=== PATIENT | female | born 1980 | race Hispanic/Latino ===

== ENCOUNTER 2017-10-07 16:33 | Emergency (ER) | payer MEDICAID, OTHER ==
[2017-10-07 16:33] VITALS: BMI 23.1
[2017-10-07 16:40] VITALS: BP 136/67; PULSE 92; RESP 18; TEMP 97.9; O2SAT 99
--- NOTE | 2017-10-07 16:54 | ED PDOC ---
HPI: Psych/Substance Abuse Time Seen by Provider: 10/07/17 16:35 Chief Complaint (Nursing): Alcohol Ingestion Chief Complaint (Provider): Alcohol Intoxication History Per: Patient, EMS History/Exam Limitations: no limitations Onset/Duration Of Symptoms: Hrs Additional Complaint(s): Patient is a 37 y/o female known to be a drug abuser, who was brought to the ED by EMS after being found sleeping in patient transportation driver seat of her car. As per patient, she does admit to taking 3 shots of alcohol today and states that she felt too impaired to continue driving so she pulled over to sleep. She adds that she turned off her car and was waiting to sober up to be able to drive again. Patient denies any chest pain., shortness of breath, headache, or injury. PCP: NO FAMILY PROVIDER Past Medical History Reviewed: Historical Data, Nursing Documentation, Vital Signs Vital Signs: Last Vital Signs Temp 97.9 F 10/07/17 16:37 Pulse 92 H 10/07/17 16:37 Resp 18 10/07/17 16:37 BP 136/67 10/07/17 16:37 Pulse Ox 99 10/07/17 16:37 - Medical History PMH: Anxiety, Asthma, COPD, Depression, Hepatitis, Post Traumatic Stress Disorder, Seizures (Due to alcohol withdrawal), Sexually Transmitted Disease ( Herpes) Denies: Diabetes, HIV, HTN - Surgical History Surgical History: No Surg Hx - Family History Family History: States: No Known Family Hx - Social History Current smoker - smoking cessation education provided: Yes (heavy smoker > 10 cigarettes daily) Alcohol: Occasional (Vodka, beer) Drugs: Other (Positive for substance abuse) - Immunization History Hx Tetanus Toxoid Vaccination: No Hx Influenza Vaccination: No Hx Pneumococcal Vaccination: No - Home Medications Home Medications: Ambulatory Orders Medication Instructions Recorded Albuterol HFA [Ventolin HFA 90 1 puff INH Q6 PRN 03/14/16 mcg/actuation (8 g)] Budesonide/Formoterol Fumarate 1 aer IH DAILY 03/14/16 [Symbicort 80-4.5 Mcg Inhaler] Sertraline [Zoloft] 50 mg PO DAILY 03/14/16 valACYclovir [Valtrex] 500 mg PO DAILY 06/13/16 QUEtiapine [SEROquel] 50 mg PO HS #30 tab 06/17/16 Sertraline [Zoloft] 100 mg PO DAILY #30 tab 06/17/16 traZODone [Desyrel] 100 mg PO HS PRN #30 tab 06/17/16 Azithromycin [Zithromax] 1 tab PO DAILY 07/14/16 Gabapentin [Neurontin] 1 tab PO DAILY 07/14/16 Albuterol HFA [Ventolin HFA 90 1 puff INH RQ6 PRN #1 inhaler 01/06/17 mcg/actuation (8 g)] Gabapentin [Neurontin] 300 mg PO BID #60 cap 01/06/17 QUEtiapine [SEROquel] 50 mg PO HS #30 tab 01/06/17 Sertraline [Zoloft] 100 mg PO DAILY #30 tab 01/06/17 traZODone [Desyrel] 100 mg PO HS PRN #30 tab 01/06/17 valACYclovir [Valtrex] 500 mg PO DAILY #30 tab 01/06/17 - Allergies Allergies/Adverse Reactions: Allergies Allergy/AdvReac Type Severity Reaction Status Date / Time Penicillins Allergy unknown Verified 01/04/17 16:52 seafood Allergy ANAPHYLAXIS Uncoded 10/07/17 16:35 Review of Systems ROS Statement: Except As Marked, All Systems Reviewed And Found Negative Cardiovascular: Negative for: Chest Pain Respiratory: Negative for: Shortness of Breath Neurological: Negative for: Headache Physical Exam - Reviewed Nursing Documentation Reviewed: Yes Vital Signs Reviewed: Yes - Physical Exam Appears: Positive for: No Acute Distress Head Exam: Positive for: ATRAUMATIC, NORMOCEPHALIC Skin: Positive for: Normal Color, Warm, Dry Eye Exam: Positive for: Normal appearance, EOMI, PERRL Neck: Positive for: Normal, Painless ROM, Supple Cardiovascular/Chest: Positive for: Regular Rate, Rhythm. Negative for: Murmur Respiratory: Positive for: Normal Breath Sounds. Negative for: Respiratory Distress Gastrointestinal/Abdominal: Positive for: Normal Exam, Soft. Negative for: Tenderness Back: Positive for: Normal Inspection. Negative for: L CVA Tenderness, R CVA Tenderness, Vertebral Tenderness Extremity: Positive for: Normal ROM. Negative for: Pedal Edema, Deformity Neurologic/Psych: Positive for: Alert, Oriented (x3), Gait (Steady and unassisted). Negative for: Motor/Sensory Deficits - ECG O2 Sat by Pulse Oximetry: 99 (RA) Pulse Ox Interpretation: Normal Medical Decision Making Medical Decision Makin:05 -Patient reports no complaints at this time and does not want to be evaluated at the ED -Patient states she will not be driving home Scribe Attestation: Documented by Evie Grubbs, acting as a scribe for Jorge Carrera PA-C Provider Scribe Attestation: All medical record entries made by the Scribe were at my direction and personally dictated by me. I have reviewed the chart and agree that the record accurately reflects my personal performance of the history, physical exam, medical decision making, and the department course for this patient. I have also personally directed, reviewed, and agree with the discharge instructions and disposition. Disposition - Clinical Impression Clinical Impression: Alcohol intoxication - Patient ED Disposition Is Patient to be Admitted: No - Disposition Disposition Time: 16:53 Condition: STABLE Instructions: Alcohol Intoxication (ED) Forms: [employer] (Wallisian)
== END 2017-10-07 17:07 | disposition home or self-care (01) ==
LOC: H.ER 16:33
DX: F10.129 Alcohol abuse with intoxication, unspecified (principal); F32.9 Major depressive disorder, single episode, unspecified; F43.10 Post-traumatic stress disorder, unspecified; J44.9 Chronic obstructive pulmonary disease, unspecified; Z88.0 Allergy status to penicillin; F17.210 Nicotine dependence, cigarettes, uncomplicated

== ENCOUNTER 2018-11-02 15:51 | Inpatient (IN) | payer MEDICAID, OTHER ==
[2018-11-02 15:51] VITALS: BMI 26.4
--- NOTE | 2018-11-02 16:28 | ED PDOC ---
HPI: Psych/Substance Abuse Time Seen by Provider: 11/02/18 16:07 Chief Complaint (Nursing): Psychiatric Evaluation Chief Complaint (Provider): Overdose History Per: Patient History/Exam Limitations: no limitations Onset/Duration Of Symptoms: Days (yesterday) Additional Complaint(s): Pt. states she took 15 trazodone tablets of 100mg each and alcohol last night. She took it to try to sleep. Denies suicidal or homicidal ideation. She called [facility] to get help and they called back, but she missed the call. Police was called by them to check on her and brought her to the ER. Pt. denies any nausea, vomit, weakness, dizziness, sleepiness, chest pain, palpitations, or any symptoms currently. Past Medical History Reviewed: Nursing Documentation, Vital Signs Vital Signs: Last Vital Signs Temp 98.0 F 11/02/18 15:59 Pulse 128 H 11/02/18 15:59 Resp 20 11/02/18 15:59 BP 94/35 L 11/02/18 15:59 Pulse Ox 98 11/02/18 15:59 - Medical History PMH: Anxiety, Asthma, COPD, Depression, Hepatitis, Pancreatitis, Post Traumatic Stress Disorder, Seizures (Due to alcohol withdrawal), Sexually Transmitted Disease (Herpes) Denies: Diabetes, HTN, Chronic Kidney Disease Comment Only: HIV (SEE NOTE) - Family History Family History: States: Unknown Family Hx - Immunization History Hx Tetanus Toxoid Vaccination: No Hx Influenza Vaccination: No Hx Pneumococcal Vaccination: No - Home Medications Home Medications: Ambulatory Orders Medication Instructions Recorded Alendronate Sodium [Binosto] 70 mg PO QWK 03/20/18 Gabapentin [Neurontin] 300 mg PO BID 03/20/18 Omeprazole 40 mg PO DAILY 03/20/18 SUMAtriptan succinate [Imitrex Tab] 100 mg PO DAILY PRN 03/20/18 Budesonide/Formoterol Fumarate 1 aer IH BID PRN 04/01/18 [Symbicort] Sertraline [Zoloft] 50 mg PO DAILY 06/11/18 Albuterol HFA [Ventolin HFA 90 2 puff IH [id number] PRN #1 inhaler 06/14/18 mcg/actuation (8 g)] Budesonide [Pulmicort Respules] 0.25 mg INH RQ12 #1 nebu 06/14/18 Mirtazapine [Remeron] 30 mg PO HS #30 tab 06/14/18 QUEtiapine [Seroquel] 100 mg PO HS #30 tab 06/14/18 - Allergies Allergies/Adverse Reactions: Allergies Allergy/AdvReac Type Severity Reaction Status Date / Time Penicillins Allergy ANAPHYLAXIS Verified 11/02/18 15:59 seafood Allergy ANAPHYLAXIS Uncoded 11/02/18 15:59 Review of Systems ROS Statement: Except As Marked, All Systems Reviewed And Found Negative Physical Exam - Reviewed Nursing Documentation Reviewed: Yes Vital Signs Reviewed: Yes - Physical Exam Appears: Positive for: Non-toxic, No Acute Distress Head Exam: Positive for: ATRAUMATIC, NORMAL INSPECTION, NORMOCEPHALIC Skin: Positive for: Normal Color, Warm, DRY Eye Exam: Positive for: EOMI, Normal appearance, PERRL ENT: Positive for: Normal ENT Inspection Neck: Positive for: Normal, Painless ROM Cardiovascular/Chest: Positive for: Regular Rate, Rhythm Respiratory: Positive for: CNT, Normal Breath Sounds Gastrointestinal/Abdominal: Positive for: Normal Exam, Soft. Negative for: Tenderness Back: Positive for: Normal Inspection. Negative for: L CVA Tenderness, R CVA Tenderness Extremity: Positive for: Normal ROM. Negative for: Tenderness, Pedal Edema Neurologic/Psych: Positive for: Alert, pyrometer mechanic II-XII, Oriented. Negative for: Motor/Sensory Deficits, Aphasia, Facial Droop - Laboratory Results Result Diagrams: 11/02/18 16:30 11/02/18 16:30 Interpretation Of Abn Labs: opiates, coccaine, alcohol pos - ECG ECG: Positive for: Interpreted By Me, Viewed By Me ECG Rhythm: Positive for: Normal QRS, Sinus Rhythm Interpretation Of Abn EKG: qtc 482 Interpretation Of ECG: qtc 452 on repeat ekg. O2 Sat by Pulse Oximetry: 98 Pulse Ox Interpretation: Normal - Progress ED Course And Treament: 1640: Spoke with poison control. Made aware of presentation. Want EKG, labs, and monitor. No acute tx at this time. 1851: Stable. Vitals improved. Crisis saw pt. Will sign in for admit. Medically stable for admit. Coccaine in system likely cause of elevated hr. - Core Measure Core Measure Indicators: Code Heart Disposition - Clinical Impression Clinical Impression: PTSD (post-traumatic stress disorder), Cocaine abuse, Alcohol intoxication - Patient ED Disposition Is Patient to be Admitted: Yes Counseled Patient/Family Regarding: Studies Performed, Diagnosis - Disposition Disposition Time: 19:25 Condition: STABLE - Pt Status Changed To: Hospital Disposition Of: Inpatient - Admit Certification Admit to Inpatient:: After my assessment, the patient will require hospitalization for at least two midnights. This is because of the severity of symptoms shown, intensity of services needed, and/or the medical risk in this patient being treated as an outpatient. - POA Present On Arrival: None
[2018-11-02 16:43] LABS: BASO # 0.1 K/uL (0.0-0.2); BASO % 1.4 % (0.0-2.0); EOS # 0.2 K/uL (0.0-0.7); EOS % 3.3 % (0.0-4.0); HEMOGLOBIN 14.5 g/dL (12.0-16.0); LYMPH # 2.5 K/uL (1.0-4.3); LYMPH % 46.4 % (20.0-40.0); MEAN CELL VOLUME 95.5 fl (81.0-99.0); MEAN CORPUSCULAR HEMOGLOBIN 33.1 pg (27.0-31.0); MEAN CORPUSCULAR HGB CONC 34.6 g/dL (33.0-37.0); MONO # 0.3 K/uL (0.0-0.8); MONO % 5.7 % (0.0-10.0); NEUT # 2.3 K/uL (1.8-7.0); NEUT % 43.2 % (50.0-75.0); NRBC % 0.1 % (0.0-0.0); RBC 4.37 Mil/uL (3.80-5.20); RED CELL DISTRIBUTION WIDTH 11.9 % (11.5-14.5); WHITE BLOOD COUNT 5.3 K/uL (4.8-10.8)
[2018-11-02] MEDS: Sodium Chloride 0.9% 1,000 ML IV STA ×2 (16:45→23:03)
[2018-11-02 16:56] LABS: ACETAMINOPHEN < 10.0 ug/ml (10.0-30.0); ALB/GLOB RATIO 1.2 (1.0-2.1); ALBUMIN 4.6 g/dL (3.5-5.0); ALT/SGPT 42 U/L (9-52); AST/SGOT 50 U/L (14-36); BLOOD UREA NITROGEN 8 mg/dl (7-17); CALCIUM 9.4 mg/dL (8.4-10.2); GFR NON-AFRICAN AMERICAN > 60; SALICYLATE < 1.0 mg/dl
[2018-11-02 17:07] LABS: BARBITURATES, UR NEGATIVE (NEGATIVE); BENZODIAZEPINES, UR NEGATIVE (NEGATIVE); OPIATES, UR POSITIVE (NEGATIVE); PHENCYCLIDINE, UR NEGATIVE (NEGATIVE)
[2018-11-02] MEDS ORDERED: Magnesium Hydroxide Susp 30 ml UD PO PRN (22:27)
[2018-11-02] MEDS ORDERED: Alum-Mag Hydrox-Simethicone Susp (30 mL) PO PRN (22:27)
[2018-11-02] MEDS ORDERED: DiphenhydrAMINE 50 mg/ml Inj IM PRN (22:27)
[2018-11-02 23:31] VITALS: O2SAT 97
--- NOTE | 2018-11-03 00:01 | PCM.BM ---
<Nayely Stephens - Last Filed: 11/03/18 00:03> Treatment Plan Problems - Problems identified on initial assessmt Medication nonadherence Date Initiated: 11/03/18 Time Initiated: 00:00 Assessment reference: NA Status: Active Ineffective Family Coping Date Initiated: 11/03/18 Time Initiated: 00:01 Assessment reference: NA Status: Active Altered sleep patterns Date Initiated: 11/03/18 Time Initiated: 00:01 Date resolved: 11/03/18 Assessment reference: NA Status: Active Treatment assets and liabiliti Patient Assests: adapts well, cooperative, insightful, resourceful, self- reliant, ADL independent, good support system, negotiates basic needs, cognitively intact, good interpersonal skills Patient Liabilities: poor support system, substance abuse, medical problems - Milieu Protocol Maintain good personal hygiene: every shift Encourage regular showers, every shift Remind patient to perform daily oral care, every shift Assist patient to perform ADL's Conduct patient checks and document Observation sheet: Q15 minutes, 1:1 Maintain personal safety: every shift Educate patient to report safety concerns to staff, every shift Monitor environment for contraband/sharps Medication safety: Monitor for expected outcome, potential side effects: every shift, Assess barriers to learning: every shift, Assess readiness for medication education: every shift <Magda Contreras - Last Filed: 11/05/18 16:24> Treatment assets and liabiliti Patient Assests: adapts well, cooperative, educated (Pt. reports partial college education with [employer]. Pt. reports intentions to return to school and become a medical office representative. ), resourceful, self-reliant, ADL independent, good support system (Pt. reports having a loving relationship with son. Pt. reports circumstantially supportive relationship with mother and sister who reside in [facility]. ), good past tx response (longest period of sobriety: 3 years with help of [facility] and NA) Patient Liabilities: financial problems, substance abuse (Pt. reports extensive hx of polysubstance abuse with several periods of sobriety. (ETOH/marijuana: since age 12, heroin: since age 20, longest period of sobriety: 3 years with help of [facility] and NA). Pt. reports relapsing 5 days ago (heroin /ETOH). Pt. positive for opiates, cocaine, ETOH upon admission. ) Family Contact Family involvement: Family/SO is involved Family contact: Family has been contacted by patient, Patient declines to allow family contact at present - Goals for Treatment Patient goals for treatment: Patient to continue stabilization on 3NP through medication management and group/supportive therapy to address sxs of depression, eliminate SI, and safely detox. Patient to be encouraged to attend groups regularly to promote self-awareness, sobriety, and improve insight, compliance, coping skills and self-esteem. Patient to be provided with referral for appropriate level of aftercare to reduce risk of future hospitalizations and ensure safety in the community. Pt. identified wanting to work on her recovery to maintain sobriety and prioritize outpatient mental health services to be able to return to work and be there for her son. Discharge/Continuing Care - Education Needs Education Needs: Patient Medication, Patient Diagnosis/Disease Process, Patient Coping Skills, Patient Community resources, Patient Aftercare Safety Plan - Discharge Discharge Criteria: Tolerates medication w/o severe side effects, Free of Suicidal thoughts, Free of agitation, Normal sleep pattern, Ability to care for self, No longer exhibiting s/s of withdrawal Discharge to:: Home, With Family - Treatment Team Participation Patient/Family/SO Statement: 11/05/18 16:28 Pt. attended tx team this morning to discuss progress on 3NP and tx goals. Pt. reported significant improvement in sxs of depression and anxiety since admissio n as exhibited by improved sleep, better mood, increased energy/motivation. Pt. denied SI/HI and was able to contract for [employer]. Pt. expressed gratitude regarding benefits of being on 3NP with peers who share similar narratives, dx, vices. Affect is brighter than at time of admission. Insight improved as exhibited by pt being more easily engaged in discussion regarding benefits of sobriety and risks of continued to substance abuse/non-adherence. Pt. receptive to feedback and expressed motivation for tx. Pt. requesting referral to [facility]. Intake appointment has been made by this news writer. Pt. anticipated for discharge on 11/06/18. [facility] scheduled for 11am-2pm. Discussed with Family/SO: No Was Patient/Family/SO present at Treatment Team Meeting: Yes <Lenny Flaherty - Last Filed: 11/06/18 09:04> - Diagnosis (1) Cocaine abuse Status: Acute Interventions: motivational therapy 11/06/18 09:04
[2018-11-03 09:00] LABS: T4 6.91 ug/dl (5.5-11.0)
--- NOTE | 2018-11-03 12:02 | PCM.PSYCH ---
Initial Psychiatric Evaluation - Initial Psychiatric Evaluation History of Present Illness and Precipitating Events: pt is 38 ys old female with previous diagnosis of polysubstance dependence and depression , recently discharged from [facility] rehab, patient was feeling increasingly depressed due to the anniversary of the of her , relapsed on alcohol, cocaine and opiates , pt started having suicidal ideation, overdosed on trazodone and alcohol and called [facility] , police was called and patient was brought to ER pt on evaluation presenting with depressed mood and affect, reported early insomnia, low energy and anhedonia, denied active thoughts of self harm on the unit denied perceptual disturbances Current Medications: Active Medications Generic Name Dose Route Start Last Admin Trade Name Freq PRN Reason Stop Dose Admin Acetaminophen 650 mg 11/02/18 22:27 Tylenol 325mg Tab PO Q4 PRN Pain, moderate (4-7) Al Hydrox/Mg Hydrox/Simethicone 30 ml 11/02/18 22:27 Maalox Plus 30 Ml PO Q4 PRN Dyspepsia Chlordiazepoxide 25 mg 11/03/18 17:00 Librium PO Q8 JOCELIN Clonidine HCl 0.1 mg 11/03/18 09:00 11/03/18 09:10 Catapres PO 0.1 mg Q12 JOCELIN Administration Diphenhydramine HCl 50 mg 11/02/18 22:27 Benadryl IM Q6 PRN Extrapyramidal S/S Unable PO Diphenhydramine HCl 50 mg 11/02/18 22:27 Benadryl PO Q6 PRN Extrapyramidal Symptoms Gabapentin 300 mg 11/03/18 09:00 11/03/18 09:10 Neurontin PO 300 mg TID JOCELIN Administration Haloperidol 5 mg 11/02/18 22:27 Haldol PO Q4 PRN Agitation Haloperidol Lactate 5 mg 11/02/18 22:27 Haldol IM Q4 PRN Agitation, Unable to Take PO Ibuprofen 800 mg 11/02/18 22:39 Motrin Tab PO 11/05/18 22:39 Q6 PRN Pain, Mild (1-3) Loperamide HCl 2 mg 11/02/18 22:39 Imodium PO Q4 PRN After Loose Bowel Movement Lorazepam 1 mg 11/02/18 22:27 Ativan PO Q6 PRN Anxiety/Agitation Lorazepam 2 mg 11/03/18 00:27 Ativan IM Q8 PRN Agitation Magnesium Hydroxide 30 ml 11/02/18 22:27 Milk Of Magnesia PO HS PRN Constipation Mirtazapine 7.5 mg 11/03/18 22:00 Remeron PO HS JOCELIN Nicotine 1 patch 11/03/18 11:20 Nicoderm Cq TD 11/03/18 11:21 STAT STA Nicotine 1 patch 11/04/18 09:00 Nicoderm Cq TD DAILY JOCELIN Trazodone HCl 50 mg 11/02/18 22:35 Desyrel PO HS PRN Insomnia Past Psychiatric History - Past Psychiatric History Explanation of prior treatment: multiple hospitalizations with partial compliance History of ETOH/Drug Use: alcohol , opiates and cannabis Pertinent Medical Hx (Current Medical&Sleep Prob, Allergies): Allergies Allergy/AdvReac Type Severity Reaction Status Date / Time Penicillins Allergy ANAPHYLAXIS Verified 11/02/18 15:59 seafood Allergy ANAPHYLAXIS Uncoded 11/02/18 15:59 Alendronate Sodium [Binosto] 70 mg PO QWK 03/20/18 Gabapentin [Neurontin] 300 mg PO BID 03/20/18 Omeprazole 40 mg PO DAILY 03/20/18 SUMAtriptan succinate [Imitrex Tab] 100 mg PO DAILY PRN 03/20/18 Budesonide/Formoterol Fumarate [Symbicort] 1 aer IH BID PRN 04/01/18 Sertraline [Zoloft] 50 mg PO DAILY 06/11/18 Albuterol HFA [Ventolin HFA 90 mcg/actuation (8 g)] 2 puff IH [id number] PRN #1 inhaler 06/14/18 Budesonide [Pulmicort Respules] 0.25 mg INH RQ12 #1 nebu 06/14/18 Mirtazapine [Remeron] 30 mg PO HS #30 tab 06/14/18 QUEtiapine [Seroquel] 100 mg PO HS #30 tab 06/14/18 Mental Status Examination - Personal Presentation Personal Presentation: Looks stated age - Affect Affect: Constricted, Depressed - Motor Activity Motor Activity: Psychomotor Retardation - Reliability in Providing Information Reliability in Providing Information: Fair - Speech Speech: Relevant - Mood Mood: Depressed, Anxious - Formal Thought Process Formal Thought Process: Circumstantial - Obsessions/Compulsions Obsessions: No Compulsions: No - Cognitive Functions Orientation: Person, Place, Situation Sensorium: Alert Judgement: Imparied, as evidence by: Poor judgement, Imparied, as evidence by: Mariaa dask of insight into illness - Risk Risk: Suicidal, Withdrawal, Diminished functioning - Strength & Assets Inventory Strength & Assets Inventory: Life experience - Limitations Additional comments: poor compliance DSM 5 DX - DSM 5 DSM 5 Diagnosis: alcohol induced mood disorder with depressive features alcohol abuse opiate abuse cocaine abuse depression - Recommended/Plan of Treatment Treatment Recommendations and Plan of Treatment: start librium protocol/ monitor patient for symptoms and signs of alcohol withdrawal start clonidine protocol/ monitor for symptoms and signs of opiate withdrawal neurontin 300mg tid for anxiety and seizures trazodone 50mg qhs start remeron 7.5mg qhs for depression and insomnia motivational group and supportive therapy
--- NOTE | 2018-11-03 23:13 | CARD ---
APPROVED REPORT Date of service: 11/02/2018 EKG Measurement Heart [id number] <Conclusion> Normal sinus rhythm Nonspecific ST abnormality Abnormal ECG
--- NOTE | 2018-11-03 23:15 | CARD ---
APPROVED REPORT Date of service: 11/02/2018 EKG Measurement Heart [id number] <Conclusion> Normal sinus rhythm Prolonged QT Abnormal ECG
--- NOTE | 2018-11-04 10:14 | CP.PCM.CON ---
History of Present Illness - History of Present Illness History of Present Illness: 38 yo female with history of polysubstance abuse admitted to psyche unit because of worsening depression. Review of Systems - Review of Systems All systems: reviewed and no additional remarkable complaints except (aside from those mentioned above, 12 point system review were negative by me) Past Patient History - Infectious Disease Hx of Infectious Diseases: None - Tetanus Immunizations Tetanus Immunization: Unknown - Past Medical History & Family History Past Medical History?: Yes - Past Social History Smoking Status: Heavy Smoker > 10 Cigarettes Daily Chewing Tobacco Use: No Cigar Use: No Alcohol: > 2 Drinks/Day Drugs: Opiates - CARDIAC Hx Cardiac Disorders: No Hx Hypertension: No - PULMONARY Hx Chronic Obstructive Pulmonary Disease (COPD): Yes Hx Tuberculosis: No - NEUROLOGICAL Hx Seizures: Yes (Due to alcohol withdrawal) - HEENT Hx HEENT Problems: No - RENAL Hx Chronic Kidney Disease: No - ENDOCRINE/METABOLIC Hx Endocrine Disorders: No - HEMATOLOGICAL/ONCOLOGICAL Hx Cancer: No Hx Hepatitis C: Yes Hx Human Immunodeficiency Virus (HIV): (SEE NOTE) - INTEGUMENTARY Hx Dermatological Problems: No - MUSCULOSKELETAL/RHEUMATOLOGICAL Hx Falls: Yes - GASTROINTESTINAL Hx Gastrointestinal Disorders: Yes Hx Pancreatitis: Yes Other/Comment: pancreatitis - GENITOURINARY/GYNECOLOGICAL Hx Sexually Transmitted Disorders: Yes (Herpes) - PSYCHIATRIC Hx Substance Use: Yes (cocaine, heroin) - SURGICAL HISTORY Hx Surgeries: Yes Hx Herniorrhaphy: Yes Hx Tubal Ligation: Yes (2 years ago) - ANESTHESIA Hx Anesthesia: Yes Hx Anesthesia Reactions: No Hx Malignant Hyperthermia: No Meds Allergies/Adverse Reactions: Allergies Allergy/AdvReac Type Severity Reaction Status Date / Time Penicillins Allergy ANAPHYLAXIS Verified 11/02/18 15:59 seafood Allergy ANAPHYLAXIS Uncoded 11/02/18 15:59 - Medications Medications: Current Medications Acetaminophen (Tylenol 325mg Tab) 650 mg PO Q4 PRN PRN Reason: Pain, moderate (4-7) Al Hydrox/Mg Hydrox/Simethicone (Maalox Plus 30 Ml) 30 ml PO Q4 PRN PRN Reason: Dyspepsia Chlordiazepoxide (Librium) 25 mg PO Q8 JOCELIN Last Admin: 11/04/18 09:19 Dose: 25 mg Clonidine HCl (Catapres) 0.1 mg PO Q12 JOCELIN Last Admin: 11/04/18 09:20 Dose: 0.1 mg Diphenhydramine HCl (Benadryl) 50 mg IM Q6 PRN PRN Reason: Extrapyramidal S/S Unable PO Diphenhydramine HCl (Benadryl) 50 mg PO Q6 PRN PRN Reason: Extrapyramidal Symptoms Gabapentin (Neurontin) 300 mg PO TID [facility] Last Admin: 11/04/18 09:19 Dose: 300 mg Haloperidol (Haldol) 5 mg PO Q4 PRN PRN Reason: Agitation Haloperidol Lactate (Haldol) 5 mg IM Q4 PRN PRN Reason: Agitation, Unable to Take PO Ibuprofen (Motrin Tab) 800 mg PO Q6 PRN PRN Reason: Pain, Mild (1-3) Stop: 11/05/18 22:39 Loperamide HCl (Imodium) 2 mg PO Q4 PRN PRN Reason: After Loose Bowel Movement Lorazepam (Ativan) 1 mg PO Q6 PRN PRN Reason: Anxiety/Agitation Lorazepam (Ativan) 2 mg IM Q8 PRN PRN Reason: Agitation Magnesium Hydroxide (Milk Of Magnesia) 30 ml PO HS PRN PRN Reason: Constipation Mirtazapine (Remeron) 7.5 mg PO HS [facility] Last Admin: 11/03/18 22:01 Dose: 7.5 mg Nicotine (Nicoderm Cq) 1 patch TD DAILY [facility] Last Admin: 11/04/18 09:20 Dose: 1 patch Trazodone HCl (Desyrel) 50 mg PO HS PRN PRN Reason: Insomnia Last Admin: 11/04/18 00:01 Dose: 50 mg Physical Exam - Constitutional Appears: No Acute Distress - Head Exam Head Exam: ATRAUMATIC - Eye Exam Eye Exam: absent: Scleral icterus - ENT Exam ENT Exam: Mucous Membranes Moist - Neck Exam Neck exam: Negative for: Meningismus - Respiratory Exam Respiratory Exam: absent: Rales, Rhonchi, Wheezes, Respiratory Distress - Cardiovascular Exam Cardiovascular Exam: REGULAR RHYTHM, +S1, +S2 - GI/Abdominal Exam GI & Abdominal Exam: Soft. absent: Tenderness - Rectal Exam Rectal Exam: Deferred - Extremities Exam Extremities exam: Negative for: calf tenderness, pedal edema - Back Exam Back exam: NORMAL INSPECTION - Neurological Exam Neurological exam: Alert, Oriented x3 - Psychiatric Exam Psychiatric exam: Normal Affect - Skin Skin Exam: Dry, Intact Results - Vital Signs Recent Vital Signs: Last Vital Signs Temp 98.8 F 11/04/18 09:00 Pulse 76 11/04/18 09:20 Resp 18 11/04/18 09:00 BP 112/78 11/04/18 09:20 Pulse Ox 97 11/02/18 23:22 - Labs Result Diagrams: 11/02/18 16:30 11/02/18 16:30 Labs: Laboratory Results - last 24 hr 11/03/18 11/03/18 06:30 06:30 Hemoglobin A1c 5.9 RPR Nonreactive Assessment & Plan (1) Depression Status: Acute Comment: psyche is managing (2) Drug dependence Status: Acute
--- NOTE | 2018-11-04 12:43 | PCM.PYCHPN ---
Psychiatric Progress Note - Psychiatric Progress Note Patient seen today, length of contact: pt evaluated discussed with team chart reviewed Patient Chief Complaint: I SLEPT BETTER Problems Identified/Issues Discussed: pt evaluated, presenting with depressed mood and affect, reported improved sleep, discussed increasing remeron dose, motivational therapy provided, pt denied active thoughts of self harm denied perceptual disturbances Medical Problems: multiple hospitalizations with partial compliance DSM 5 Symptoms Update: alcohol induced mood disorder opiate use cocaine use depression Medication Change: Yes (increase remeron) Medical Record Reviewed: Yes Mental Status Examination - Cognitive Function Orientation: Person, Place, Situation - Mood Mood: Depressed, Anxious - Affect Affect: Constricted, Depressed - Formal Thought Process Formal Thought Process: Circumstantial - Suicidal Ideation Suicidal Ideation: No - Homicidal Ideation Homicidal Ideation: No Goal/Treatment Plan - Goal/Treatment Plan Need for Continued Stay: Severe depression anxiety, Discharge may exacerbated symptoms Progress Toward Problem(s) and Goals/Treatment Plan: decrease librium protocol/ monitor patient for symptoms and signs of alcohol withdrawal clonidine protocol/ monitor for symptoms and signs of opiate withdrawal neurontin 300mg tid for anxiety and seizures trazodone 50mg qhs increase remeron 15mg qhs for depression and insomnia motivational group and supportive therapy
--- NOTE | 2018-11-05 13:49 | PCM.PYCHPN ---
Psychiatric Progress Note - Psychiatric Progress Note Patient seen today, length of contact: pt evaluated discussed with team chart reviewed Patient Chief Complaint: I am ready to join meetings Problems Identified/Issues Discussed: pt evaluated with treatment team, reported nati better, affect less anxious , reported improved sleep, no reported side effects with increasing remeron dose, motivational therapy provided, pt denied active thoughts of self harm denied perceptual disturbances Medical Problems: multiple hospitalizations with partial compliance DSM 5 Symptoms Update: substance induced mood disorder depression Medication Change: No Medical Record Reviewed: Yes Mental Status Examination - Cognitive Function Orientation: Person, Place, Situation Attention: WNL Concentration: WNL Association: [facility] Fund of Knowledge: [facility] Decription of patient's judgement and insights: partial insight, poor judgment - Mood Mood: Depressed, Anxious - Affect Affect: Constricted, Depressed - Speech Speech: Appropriate - Formal Thought Process Formal Thought Process: Circumstantial Psychotic Thoughts and Behaviors: pt denied perceptual disturbances, non elicited - Suicidal Ideation Suicidal Ideation: No - Homicidal Ideation Homicidal Ideation: No Goal/Treatment Plan - Goal/Treatment Plan Need for Continued Stay: Severe depression anxiety, Discharge may exacerbated symptoms Progress Toward Problem(s) and Goals/Treatment Plan: discontinue librium neurontin 300mg tid for anxiety and seizures trazodone 50mg qhs remeron 15mg qhs for depression and insomnia motivational group and supportive therapy
[2018-11-06 09:26] VITALS: BP 89/63
--- NOTE | 2018-11-06 09:52 | PCM.PYCHDC ---
Mental Status Examination - Mental Status Examination Orientation: Person, Place, Situation Memory: Intact Mood: Neutral Affect: Broad Speech: Appropriate Attention: WNL Concentration: WNL Association: WNL Fund of Knowledge: WNL Formal Thought Process: No Impairment Description of patient's judgement and insight: partial insight, fair judgment Psychotic Thoughts and Behaviors: pt denied perceptual disturbances, non elicited Suicidal Ideation: No Current Homicidal Ideation?: No Discharge Summary - Discharge Note Reason for Hospitalization: pt is 38 ys old female with previous diagnosis of polysubstance dependence and depression , recently discharged from [facility] rehab, patient was feeling increasingly depressed due to the anniversary of the of her , relapsed on alcohol, cocaine and opiates , pt started having suicidal ideation, overdosed on trazodone and alcohol and called [facility] , police was called and patient was brought to ER pt on evaluation presenting with depressed mood and affect, reported early insomnia, low energy and anhedonia, denied active thoughts of self harm on the unit denied perceptual disturbances Consultations:: List each consultation separately and include: 1. Reason for request. 2. Findings. 3. Follow-up Summary of Hospital Course include:: 1. Description of specific treatment plan utilized for patients during their course of treatmen. 2. Summarize the time- course for resolution of acute symptoms and/or regressed behaviors. 3. Describe issues identified and worked on during hospitalization. 4. Describe medication utilized. 5. Describe medical problems identified and treated. 6. Reassessment of suicide risk Summary of Hospital Course: pt on admission was started on clonidine protocol and librium protocol for opiate and alcohol withdrawal pt was started on neurontin for anxiety and remeron for depression motivational therapy was provided in reference to substance use pt was compliant with treatment attended groups, on discharge pt was advised about risk of relapse on opiates and possible overdose, mental status on discharge was stable, pt denied any current suicidal or homicidal ideation denied perceptual disturbances. follow up arranged by social services coordinator at [facility] - Diagnosis (1) Cocaine abuse Current Visit: Yes Status: Acute - Final Diagnosis (DSM 5) Condition upon Discharge: STABLE DSM 5: alcohol induced mood disorder alcohol abuse cocaine abuse opiate abuse depression Disposition: HOME/ ROUTINE Follow-up Treatment Plan: discontinue librium neurontin 300mg tid for anxiety and seizures trazodone 50mg qhs remeron 15mg qhs for depression and insomnia motivational group and supportive therapy Prescriptions/Medication Reconciliation: Gabapentin [Neurontin] 300 mg PO TID 30 Days #90 cap Mirtazapine [Remeron] 15 mg PO HS 30 Days #30 tab Nicotine 14 mg/24 hr [Nicoderm CQ] 1 patch TD DAILY 30 Days #30 patch traZODone [Desyrel] 50 mg PO HS PRN 30 Days #30 tab PRN Reason: Insomnia - Antipsychotic Medications Pt discharged on 2 or more routine antipsychotic medications: No
[2018-11-06 10:33] VITALS: PULSE 77; RESP 18; TEMP 96.8
== END 2018-11-06 11:00 | disposition home or self-care (01) | DRG 744 ==
LOC: H.ER 15:51 → H.ERHOLD 19:26 → H.PSYCH 22:50
PROVIDERS: ADMIT Psychiatry & Neurology Psychiatry; ATTEND Psychiatry & Neurology Psychiatry
PROC: HZ96ZZZ Pharmacotherapy for Substance Abuse Treatment, Clonidine (ICD-10-PCS; principal; 2018-11-02)
PROC: HZ57ZZZ Individual Psychotherapy for Substance Abuse Treatment, Motivational Enhancement (ICD-10-PCS; 2018-11-02)
PROC: GZHZZZZ Group Psychotherapy (ICD-10-PCS; 2018-11-02)
PROC: GZ56ZZZ Individual Psychotherapy, Supportive (ICD-10-PCS; 2018-11-02)
PROC: HZ99ZZZ Pharmacotherapy for Substance Abuse Treatment, Other Replacement Medication (ICD-10-PCS; 2018-11-02)
DX: F10.14 Alcohol abuse with alcohol-induced mood disorder (principal); J44.9 Chronic obstructive pulmonary disease, unspecified; F11.10 Opioid abuse, uncomplicated; B19.20 Unspecified viral hepatitis C without hepatic coma; F14.10 Cocaine abuse, uncomplicated; F17.210 Nicotine dependence, cigarettes, uncomplicated; F32.9 Major depressive disorder, single episode, unspecified; G47.00 Insomnia, unspecified; F10.129 Alcohol abuse with intoxication, unspecified; Y90.6 Blood alcohol level of 120-199 mg/100 ml; F41.9 Anxiety disorder, unspecified; F43.10 Post-traumatic stress disorder, unspecified; Z88.0 Allergy status to penicillin; Z91.013 Allergy to seafood